=== PATIENT | female | born 1930 | race Caucasian/White ===

== ENCOUNTER 2017-10-28 22:35 | Observation (INO) | payer MEDICARE, OTHER ==
[2017-10-28] MEDS ORDERED: Sodium Chloride 0.9% 1,000 ML IV SCH (23:30)
[2017-10-28] MEDS: Sodium Chloride 0.9% 10 ML Syringe FLUSH PRN (23:36)
--- NOTE | 2017-10-29 01:35 | ER ---
DATE SEEN: 10/28/2017 CHIEF COMPLAINT: Fainting. HISTORY OF PRESENT ILLNESS: This is an 87-year-old female who fainted at home while seated. She felt dizzy while seated and vision changed and she passed out for about 10 minutes and now complains of just feeling weak. She admits that she had not been drinking enough fluids over the last couple days. She denies any chest pain, shortness of breath, neither does she have any nausea or vomiting. PAST MEDICAL HISTORY: She had weakness of the right lower limb 2 years ago and was admitted at that time to rule out stroke. At that visit, A1c was 7.7, but she had never been formally diagnosed with diabetes. She also has hypertension. She takes hydrochlorothiazide 1 tablet a day. MEDICATIONS: In addition to hydrochlorothiazide, she takes aspirin and vitamin D. ALLERGIES: She has no known allergies. SOCIAL HISTORY: Lives at home with her and she is fairly independent. PHYSICAL EXAMINATION: VITAL SIGNS: Her blood pressure is normal. Her pulse is 76 and temperature 98.3. EARS, NOSE, AND THROAT: Negative. MENTAL STATUS: Alert. Normal affect. CHEST: Clear. CARDIOVASCULAR: Normal. NEUROLOGIC: Normal. LAB STUDIES: White cell count is normal. Hemoglobin is normal. Creatinine is 1.4. Potassium and electrolytes are normal. EKG: Normal sinus rhythm. IMPRESSION: 1. Syncope. 2. Mild renal insufficiency. PLAN: Admit for observation and telemetry and give normal saline over the next 12 hours at 125 an hour. Repeat some labs in the morning, A1c, Accu-Cheks, and possibly discharge tomorrow if she is symptom-free. TIME SEEN: 2300 hours. /[id number] HENRY/WILLIAM
[2017-10-29] MEDS: Sodium Chloride 0.9% 10 ML Syringe FLUSH PRN (07:57)
--- NOTE | 2017-10-29 08:42 | PCM.HP ---
H&P History of Present Illness - General Date of Service: 10/29/17 Admit Problem/Dx: Admission Diagnosis/Problem Admission Diagnosis/Problem Syncope Source of Information: Patient History Limitations: Reports: No Limitations - History of Present Illness Initial Comments - Free Text/Narative: this is an 87-year-old female patient was playing [employer]eline[employer] and her home with her family. And she slumped over and passed out. She believes she was out about 10 minutes. And they brought her to the ER. She has a history of a CVA years ago. She had no shaking, lateralized weakness. She says she did have a little diarrhea at the table. She had no urinary incontinence. She has fevers, chills, ear pain, nasal congestion, cough and she says she is always dried her leg a little bit on the right side ever since she had her stroke. She has no new residual weakness. - Related Data Allergies/Adverse Reactions: Allergies Allergy/AdvReac Type Severity Reaction Status Date / Time No Known Allergies Allergy Verified 10/28/17 22:50 Home Medications: Home Meds Aspirin 325 mg PO DAILY 10/28/17 [History] Calcium Carbonate/Vitamin D3 [Calcium 500 + Vit D Caplet] 1 tab PO DAILY [History] Hydrochlorothiazide 25 mg PO DAILY 10/28/17 [History] Past Medical History HEENT History: Reports: Impaired Vision Cardiovascular History: Reports: Hypertension, Other (See Below) Other Cardiovascular History: hx of TIA couple years ago according to daughter. 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 OB/BYN History: Hysterectomy Musculoskeletal History: Reports: Arthritis Neurological History: Reports: TIA - Infectious Disease History Infectious Disease History: Reports: Chicken Pox, Measles - Past Surgical History HEENT Surgical History: Reports: Cataract Surgery Cardiovascular Surgical History: Reports: None Social & Family History - Family History Family Medical History: Noncontributory - Tobacco Use Smoking Status *Q: Never Smoker Second Hand Smoke Exposure: No - Caffeine Use Caffeine Use: Reports: Coffee Other Caffeine Use: 1 cup daily - Alcohol Use Days Per Week of Alcohol Use: 0 - Recreational Drug Use Recreational Drug Use: No H&P Review of Systems - Review of Systems: Review Of Systems: See Below General: Reports: No Symptoms HEENT: Reports: No Symptoms Pulmonary: Reports: No Symptoms Cardiovascular: Reports: No Symptoms Gastrointestinal: Reports: No Symptoms Genitourinary: Reports: No Symptoms Musculoskeletal: Reports: Other (see history of present illness) Skin: Reports: No Symptoms Psychiatric: Reports: No Symptoms Neurological: Reports: Other (see history of present illness) Hematologic/Lymphatic: Reports: No Symptoms Immunologic: Reports: No Symptoms Exam - Exam Exam: See Below - Vital Signs Vital Signs: Last Vital Signs Temp 98.3 F 10/29/17 08:00 Pulse 70 10/29/17 08:00 Resp 18 10/29/17 08:00 BP 133/65 10/29/17 08:00 Pulse Ox 94 L 10/29/17 08:00 Weight: 131 lb 11.2 oz - Exam General: Alert, Oriented, Cooperative HEENT: PERRLA, Hearing Intact, Posterior Pharynx Clear, Pupils Reactive, TMs Clear Neck: Supple, Trachea Midline Lungs: Clear to Auscultation, Normal Respiratory Effort. No: Decreased Breath Sounds, Crackles, Rhonchi Cardiovascular: Regular Rate, Regular Rhythm, Normal S1, Normal S2, Irregular Rhythm, Bradycardia, Tachycardia GI/Abdominal Exam: Normal Bowel Sounds, Soft, Non-Tender, No Organomegaly, No Distention, No Abnormal Bruit, No Mass Back Exam: Normal Inspection, Full Range of Motion Extremities: Normal Inspection, Normal Range of Motion, Non-Tender, No Pedal Edema Skin: Warm, Dry, Intact Neurological: Cranial Nerves Intact, Normal Speech, Normal Tone, Other (little weakness right leg. This is not new for the patient. Arm strength is normal) Neuro Extensive - Mental Status: Alert, Oriented x3, Normal Mood/Affect, Normal Cognition Psychiatric: Alert, Normal Affect, Normal Mood - Patient Data Lab Results Last 24 hrs: Laboratory Results - last 24 hr 10/28/17 10/28/17 10/28/17 Range/Units 22:55 22:55 22:55 WBC 9.9 (4.5-12.0) X10-3/uL RBC 4.71 (3.23-5.20) x10(6)uL Hgb 14.1 (11.5-15.5) g/dL Hct 41.2 (30.0-51.3) % MCV 87.5 (80-96) fL MCH 30.0 (27.7-33.6) pg MCHC 34.3 (32.2-35.4) g/dL RDW 11.5 (11.5-15.5) % Plt Count 211 (125-369) X10(3)uL MPV 10.5 H (7.4-10.4) fL Neut % (Auto) 84.5 H (46-82) % Lymph % (Auto) 4.9 L (13-37) % [place] % (Auto) 5.4 (4-12) % Eos % (Auto) 1 (1.0-5.0) % Baso % (Auto) 4 H (0-2) % Neut # (Auto) 8.4 H (1.6-8.3) # Lymph # (Auto) 0.5 L (0.6-5.0) # [place] # (Auto) 0.5 (0.0-1.3) # Eos # (Auto) 0.1 (0.0-0.8) # Baso # (Auto) 0.4 H (0.0-0.2) # Sodium 140 (135-145) mmol/L Potassium 3.9 (3.5-5.3) mmol/L Chloride 102 (100-110) mmol/L Carbon Dioxide 28 (21-32) mmol/L BUN 30 H (7-18) mg/dL Creatinine 1.4 H (0.55-1.02) mg/dL Est Cr Clr Drug Dosing TNP Estimated GFR (MDRD) 35 L (>60) BUN/Creatinine Ratio 21.4 H (9-20) Glucose 196 H (80-116) mg/dL POC Glucose (80-116) mg/dL Hemoglobin A1c (4.5-6.2) % Calcium 9.0 (8.6-10.2) mg/dL Phosphorus (2.6-4.6) mg/dL Magnesium (1.8-2.5) mg/dL Total Bilirubin 0.7 (0.1-1.3) mg/dL AST 18 (5-25) IU/L ALT 23 (12-36) U/L Alkaline Phosphatase 71 (56-112) IU/L Troponin I < 0.017 L (<0.017-0.056) ng/mL NT-Pro-B Natriuret Pep (<=450) pg/mL Total Protein 6.8 (6.0-8.0) g/dL Albumin 3.7 (2.9-4.5) g/dL Globulin 3.1 g/dL Albumin/Globulin Ratio 1.2 10/28/17 10/29/17 10/29/17 Range/Units 22:55 06:30 06:30 WBC (4.5-12.0) X10-3/uL RBC (3.23-5.20) x10(6)uL Hgb (11.5-15.5) g/dL Hct (30.0-51.3) % MCV (80-96) fL MCH (27.7-33.6) pg MCHC (32.2-35.4) g/dL RDW (11.5-15.5) % Plt Count (125-369) X10(3)uL MPV (7.4-10.4) fL Neut % (Auto) (46-82) % Lymph % (Auto) (13-37) % [place] % (Auto) (4-12) % Eos % (Auto) (1.0-5.0) % Baso % (Auto) (0-2) % Neut # (Auto) (1.6-8.3) # Lymph # (Auto) (0.6-5.0) # [place] # (Auto) (0.0-1.3) # Eos # (Auto) (0.0-0.8) # Baso # (Auto) (0.0-0.2) # Sodium 141 (135-145) mmol/L Potassium 3.7 (3.5-5.3) mmol/L Chloride 106 (100-110) mmol/L Carbon Dioxide 25 (21-32) mmol/L BUN 29 H (7-18) mg/dL Creatinine 1.2 H (0.55-1.02) mg/dL Est Cr Clr Drug Dosing TNP Estimated GFR (MDRD) 42 L (>60) BUN/Creatinine Ratio 24.2 H (9-20) Glucose 162 H (80-116) mg/dL POC Glucose (80-116) mg/dL Hemoglobin A1c (4.5-6.2) % Calcium 8.0 L (8.6-10.2) mg/dL Phosphorus 2.9 (2.6-4.6) mg/dL Magnesium 1.8 (1.8-2.5) mg/dL Total Bilirubin (0.1-1.3) mg/dL AST (5-25) IU/L ALT (12-36) U/L Alkaline Phosphatase (56-112) IU/L Troponin I < 0.017 L (<0.017-0.056) ng/mL NT-Pro-B Natriuret Pep 290 (<=450) pg/mL Total Protein (6.0-8.0) g/dL Albumin (2.9-4.5) g/dL Globulin g/dL Albumin/Globulin Ratio 10/29/17 10/29/17 Range/Units 06:30 06:32 WBC (4.5-12.0) X10-3/uL RBC (3.23-5.20) x10(6)uL Hgb (11.5-15.5) g/dL Hct (30.0-51.3) % MCV (80-96) fL MCH (27.7-33.6) pg MCHC (32.2-35.4) g/dL RDW (11.5-15.5) % Plt Count (125-369) X10(3)uL MPV (7.4-10.4) fL Neut % (Auto) (46-82) % Lymph % (Auto) (13-37) % [place] % (Auto) (4-12) % Eos % (Auto) (1.0-5.0) % Baso % (Auto) (0-2) % Neut # (Auto) (1.6-8.3) # Lymph # (Auto) (0.6-5.0) # [place] # (Auto) (0.0-1.3) # Eos # (Auto) (0.0-0.8) # Baso # (Auto) (0.0-0.2) # Sodium (135-145) mmol/L Potassium (3.5-5.3) mmol/L Chloride (100-110) mmol/L Carbon Dioxide (21-32) mmol/L BUN (7-18) mg/dL Creatinine (0.55-1.02) mg/dL Est Cr Clr Drug Dosing Estimated GFR (MDRD) (>60) BUN/Creatinine Ratio (9-20) Glucose (80-116) mg/dL POC Glucose 148 H (80-116) mg/dL Hemoglobin A1c 7.5 H (4.5-6.2) % Calcium (8.6-10.2) mg/dL Phosphorus (2.6-4.6) mg/dL Magnesium (1.8-2.5) mg/dL Total Bilirubin (0.1-1.3) mg/dL AST (5-25) IU/L ALT (12-36) U/L Alkaline Phosphatase (56-112) IU/L Troponin I (<0.017-0.056) ng/mL NT-Pro-B Natriuret Pep (<=450) pg/mL Total Protein (6.0-8.0) g/dL Albumin (2.9-4.5) g/dL Globulin g/dL Albumin/Globulin Ratio Result Diagrams: 10/28/17 22:55 10/29/17 06:30 - Problem List (1) Syncope SNOMED Code(s): 110714796 ICD Code: R55 - SYNCOPE AND COLLAPSE Status: Acute Current Visit: Yes Qualifiers: Syncope type: unspecified Qualified Code(s): R55 - Syncope and collapse (2) Diabetes 1.5, managed as type 2 SNOMED Code(s): 331580952 ICD Code: E10.9 - TYPE 1 DIABETES MELLITUS WITHOUT COMPLICATIONS Status: Acute Current Visit: Yes (3) Chronic renal failure, stage 3 (moderate) SNOMED Code(s): 95717697, 675588528 ICD Code: N18.3 - CHRONIC KIDNEY DISEASE, STAGE 3 (MODERATE) Status: Acute Current Visit: Yes Problem List Initiated/Reviewed/Updated: Yes Orders Last 24hrs: Active Orders 24 hr Category Date Time Status Patient Status [ADT] Routine ADT 10/28/17 23:16 Active Accu Check [Blood Glucose Check, Bedside] [RC] TIDAC Care 10/28/17 23:21 Active EKG Documentation Completion [RC] ASDIRECTED Care 10/28/17 22:40 Active Height and Weight [RC] DAILY Care 10/28/17 23:16 Active Intake and Output [RC] 06,14,22 Care 10/28/17 23:17 Active Oxygen Therapy [RC] PRN Care 10/28/17 23:16 Active Up With Assistance [RC] ASDIRECTED Care 10/28/17 23:16 Active VTE/DVT Education [RC] Per Unit Routine Care 10/28/17 23:16 Active Vital Signs [RC] Q8H Care 10/28/17 23:16 Active CXR [Chest 2V] [CR] Routine Exams 10/29/17 07:28 Ordered Sodium Chloride 0.9% [Saline Flush] Med 10/28/17 23:16 Active 10 ml FLUSH ASDIRECTED PRN Convert IV to Saline Lock [OM.PC] Routine Oth 10/29/17 07:29 Ordered Peripheral IV Insertion Adult [OM.PC] Routine Oth 10/28/17 23:16 Ordered Resuscitation Status Routine Resus Stat 10/28/17 23:16 Ordered EKG 12 Lead [EK] Routine Ther 10/28/17 22:40 Ordered Medication Orders Sodium Chloride (Saline Flush) 10 ml FLUSH ASDIRECTED PRN PRN Reason: Keep Vein Open Last Admin: 10/29/17 07:57 Dose: 10 ml Admin: 10/28/17 23:36 Dose: 10 ml Assessment/Plan Comment:: 1. Admit for observation. 2. Telemetry. 3. Up with assist. 4. Regular diet. 5. Chest x-ray to rule out pneumonia.
--- NOTE | 2017-10-29 11:30 | PCM.SN ---
- Free Text/Narrative Note: Radiologist relayed to me the chest x-rays normal. Blood sugar is supple with A1c 7.5. Did discuss with her family about head imaging. They will defer. Recheck with Dr. Diaz in one week. They already have an appointment
--- NOTE | 2017-10-29 11:31 | PCM.DCSUM1 ---
Discharge Summary - Hospital Course Free Text/Narrative:: Hospital course-patient was observed overnight. She has some IV fluids and a creatinine dropped just a little bit. His only like 1.2. A1c was done in the morning per ER document was 7.5. She says she felt a little bit fatigued but no problems. She has right leg weakness from previous CVA. She's able to walk and basically feels normal. Did a chest x-ray just to make sure she had no underlying pneumonia. That was negative. Did discuss had imaging. I don't think it would be beneficial. They're to follow up with Dr. Diaz one week and discuss it with him. Brief History: this is an 87-year-old female patient was playing [employer] and her home with her family. And she slumped over and passed out. She believes she was out about 10 minutes. And they brought her to the ER. She has a history of a CVA years ago. She had no shaking, lateralized weakness. She says she did have a little diarrhea at the table. She had no urinary incontinence. She has fevers, chills, ear pain, nasal congestion, cough and she says she is always dried her leg a little bit on the right side ever since she had her stroke. She has no new residual weakness. - Discharge Data Discharge Date: 10/29/17 Discharge Disposition: Home, Self-Care 01 Condition: Good - Discharge Diagnosis/Problem(s) (1) Syncope SNOMED Code(s): 428992733 ICD Code: R55 - SYNCOPE AND COLLAPSE Status: Acute Current Visit: Yes Qualifiers: Syncope type: unspecified Qualified Code(s): R55 - Syncope and collapse (2) Chronic renal failure, stage 3 (moderate) SNOMED Code(s): 62962661, 295931200 ICD Code: N18.3 - CHRONIC KIDNEY DISEASE, STAGE 3 (MODERATE) Status: Acute Current Visit: Yes (3) Diabetes type 2, controlled SNOMED Code(s): 88047204 ICD Code: E11.9 - TYPE 2 DIABETES MELLITUS WITHOUT COMPLICATIONS Status: Acute Current Visit: Yes Qualifiers: Diabetes mellitus long-term insulin 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 Recheck with Dr. Diaz in one week. There is appointment already set up. - Discharge Plan Home Medications: Home Meds Aspirin 325 mg PO DAILY 10/28/17 [History] Calcium Carbonate/Vitamin D3 [Calcium 500 + Vit D Caplet] 1 tab PO DAILY [History] Hydrochlorothiazide 25 mg PO DAILY 10/28/17 [History] Forms: ED Department Discharge Referrals: Mitch Diaz MD [Primary Care Provider] - - Discharge Summary/Plan Comment DC Time >30 min.: No - Patient Data Vitals - Most Recent: Last Vital Signs Temp 98.3 F 10/29/17 08:00 Pulse 70 10/29/17 08:00 Resp 18 10/29/17 08:00 BP 133/65 10/29/17 08:00 Pulse Ox 94 L 10/29/17 08:00 Weight - Most Recent: 131 lb 11.2 oz I&O - Last 24 hours: Intake & Output 10/28/17 10/29/17 10/29/17 22:59 06:59 14:59 Intake Total 50 Balance 50 Lab Results - Last 24 hrs: Laboratory Results - last 24 hr 10/28/17 10/28/17 10/28/17 Range/Units 22:55 22:55 22:55 WBC 9.9 (4.5-12.0) X10-3/uL RBC 4.71 (3.23-5.20) x10(6)uL Hgb 14.1 (11.5-15.5) g/dL Hct 41.2 (30.0-51.3) % MCV 87.5 (80-96) fL MCH 30.0 (27.7-33.6) pg MCHC 34.3 (32.2-35.4) g/dL RDW 11.5 (11.5-15.5) % Plt Count 211 (125-369) X10(3)uL MPV 10.5 H (7.4-10.4) fL Neut % (Auto) 84.5 H (46-82) % Lymph % (Auto) 4.9 L (13-37) % [place] % (Auto) 5.4 (4-12) % Eos % (Auto) 1 (1.0-5.0) % Baso % (Auto) 4 H (0-2) % Neut # (Auto) 8.4 H (1.6-8.3) # Lymph # (Auto) 0.5 L (0.6-5.0) # [place] # (Auto) 0.5 (0.0-1.3) # Eos # (Auto) 0.1 (0.0-0.8) # Baso # (Auto) 0.4 H (0.0-0.2) # Sodium 140 (135-145) mmol/L Potassium 3.9 (3.5-5.3) mmol/L Chloride 102 (100-110) mmol/L Carbon Dioxide 28 (21-32) mmol/L BUN 30 H (7-18) mg/dL Creatinine 1.4 H (0.55-1.02) mg/dL Est Cr Clr Drug Dosing TNP Estimated GFR (MDRD) 35 L (>60) BUN/Creatinine Ratio 21.4 H (9-20) Glucose 196 H (80-116) mg/dL POC Glucose (80-116) mg/dL Hemoglobin A1c (4.5-6.2) % Calcium 9.0 (8.6-10.2) mg/dL Phosphorus (2.6-4.6) mg/dL Magnesium (1.8-2.5) mg/dL Total Bilirubin 0.7 (0.1-1.3) mg/dL AST 18 (5-25) IU/L ALT 23 (12-36) U/L Alkaline Phosphatase 71 (56-112) IU/L Troponin I < 0.017 L (<0.017-0.056) ng/mL NT-Pro-B Natriuret Pep (<=450) pg/mL Total Protein 6.8 (6.0-8.0) g/dL Albumin 3.7 (2.9-4.5) g/dL Globulin 3.1 g/dL Albumin/Globulin Ratio 1.2 10/28/17 10/29/17 10/29/17 Range/Units 22:55 06:30 06:30 WBC (4.5-12.0) X10-3/uL RBC (3.23-5.20) x10(6)uL Hgb (11.5-15.5) g/dL Hct (30.0-51.3) % MCV (80-96) fL MCH (27.7-33.6) pg MCHC (32.2-35.4) g/dL RDW (11.5-15.5) % Plt Count (125-369) X10(3)uL MPV (7.4-10.4) fL Neut % (Auto) (46-82) % Lymph % (Auto) (13-37) % [place] % (Auto) (4-12) % Eos % (Auto) (1.0-5.0) % Baso % (Auto) (0-2) % Neut # (Auto) (1.6-8.3) # Lymph # (Auto) (0.6-5.0) # [place] # (Auto) (0.0-1.3) # Eos # (Auto) (0.0-0.8) # Baso # (Auto) (0.0-0.2) # Sodium 141 (135-145) mmol/L Potassium 3.7 (3.5-5.3) mmol/L Chloride 106 (100-110) mmol/L Carbon Dioxide 25 (21-32) mmol/L BUN 29 H (7-18) mg/dL Creatinine 1.2 H (0.55-1.02) mg/dL Est Cr Clr Drug Dosing TNP Estimated GFR (MDRD) 42 L (>60) BUN/Creatinine Ratio 24.2 H (9-20) Glucose 162 H (80-116) mg/dL POC Glucose (80-116) mg/dL Hemoglobin A1c (4.5-6.2) % Calcium 8.0 L (8.6-10.2) mg/dL Phosphorus 2.9 (2.6-4.6) mg/dL Magnesium 1.8 (1.8-2.5) mg/dL Total Bilirubin (0.1-1.3) mg/dL AST (5-25) IU/L ALT (12-36) U/L Alkaline Phosphatase (56-112) IU/L Troponin I < 0.017 L (<0.017-0.056) ng/mL NT-Pro-B Natriuret Pep 290 (<=450) pg/mL Total Protein (6.0-8.0) g/dL Albumin (2.9-4.5) g/dL Globulin g/dL Albumin/Globulin Ratio 10/29/17 10/29/17 Range/Units 06:30 06:32 WBC (4.5-12.0) X10-3/uL RBC (3.23-5.20) x10(6)uL Hgb (11.5-15.5) g/dL Hct (30.0-51.3) % MCV (80-96) fL MCH (27.7-33.6) pg MCHC (32.2-35.4) g/dL RDW (11.5-15.5) % Plt Count (125-369) X10(3)uL MPV (7.4-10.4) fL Neut % (Auto) (46-82) % Lymph % (Auto) (13-37) % [place] % (Auto) (4-12) % Eos % (Auto) (1.0-5.0) % Baso % (Auto) (0-2) % Neut # (Auto) (1.6-8.3) # Lymph # (Auto) (0.6-5.0) # [place] # (Auto) (0.0-1.3) # Eos # (Auto) (0.0-0.8) # Baso # (Auto) (0.0-0.2) # Sodium (135-145) mmol/L Potassium (3.5-5.3) mmol/L Chloride (100-110) mmol/L Carbon Dioxide (21-32) mmol/L BUN (7-18) mg/dL Creatinine (0.55-1.02) mg/dL Est Cr Clr Drug Dosing Estimated GFR (MDRD) (>60) BUN/Creatinine Ratio (9-20) Glucose (80-116) mg/dL POC Glucose 148 H (80-116) mg/dL Hemoglobin A1c 7.5 H (4.5-6.2) % Calcium (8.6-10.2) mg/dL Phosphorus (2.6-4.6) mg/dL Magnesium (1.8-2.5) mg/dL Total Bilirubin (0.1-1.3) mg/dL AST (5-25) IU/L ALT (12-36) U/L Alkaline Phosphatase (56-112) IU/L Troponin I (<0.017-0.056) ng/mL NT-Pro-B Natriuret Pep (<=450) pg/mL Total Protein (6.0-8.0) g/dL Albumin (2.9-4.5) g/dL Globulin g/dL Albumin/Globulin Ratio Med Orders - Current: Current Medications Sodium Chloride (Saline Flush) 10 ml FLUSH ASDIRECTED PRN PRN Reason: Keep Vein Open Last Admin: 10/29/17 07:57 Dose: 10 ml Discontinued Medications Sodium Chloride (Normal Saline) 1,000 mls @ 125 mls/hr IV ASDIRECTED [facility] Last Admin: 10/28/17 23:36 Dose: 125 mls/hr
--- NOTE | 2017-10-29 12:12 | CR ---
INDICATION: Syncope. CHEST: PA and lateral views of the chest, 10/29/2017, were compared with 2013, and revealed the heart to remain normal in size and shape. The aorta is tortuous to a slightly greater extent and slightly more heavily calcified in the arch area. A minimal dextroconvex scoliosis of the upper middle thoracic spine is noted. An active infiltrate or effusion was not identified. Overlying EKG leads are noted. IMPRESSION: 1. No acute process. 2. ASD aorta. 3. Mild scoliosis. MTDD
== END 2017-10-29 13:45 | disposition home or self-care (01) ==
LOC: FB.ED 22:35 → FB.MS 23:16
PROVIDERS: ADMIT Family Medicine; ATTEND Family Medicine
DX: R55 Syncope and collapse (principal); I12.9 Hypertensive chronic kidney disease with stage 1 through stage 4 chronic kidney disease, or unspecified chronic kidney disease; N18.3 Chronic kidney disease, stage 3 (moderate); E11.22 Type 2 diabetes mellitus with diabetic chronic kidney disease; M19.90 Unspecified osteoarthritis, unspecified site; Z86.73 Personal history of transient ischemic attack (TIA), and cerebral infarction without residual deficits; Z79.82 Long term (current) use of aspirin; Z79.899 Other long term (current) drug therapy
CPT/HCPCS: 36415; 71046; 80048; 80053; 82962; 83036; 83735; 83880; 84100; 84484; 85025; 93005; 99284; G0378; J7040; J7050